=== PATIENT | female | born 1975 | race Caucasian/White ===

== ENCOUNTER 2017-07-25 11:14 | Day surgery (SDC) | payer OTHER ==
[~2017-07-25 11:14] MED LIST: ACETAMINOPHEN 1,000 MG/100 ML BTL IV ONE; CLINDAMYCIN 600MG/50ML PREMIX 600 MG/50 ML BAG IVPB ONE
[2017-07-25] MEDS ORDERED: METOCLOPRAMIDE 10 MG TABLET PO ONE (11:15)
[2017-07-25] MEDS ORDERED: MECLIZINE 25 MG TABLET PO ONE (11:15)
[2017-07-25] MEDS ORDERED: PROPOFOL 10 MG/ML VIAL IV ONE (11:15)
[2017-07-25] MEDS ORDERED: SCOPOLAMINE 1 PATCH TDSY TD ONE (11:15)
[2017-07-25] MEDS ORDERED: KETOROLAC 30 MG/ML VIAL IVP ONE (11:15)
[2017-07-25] MEDS ORDERED: ONDANSETRON HCL IV 4 MG/2 ML VIAL IVP ONE (11:15)
[2017-07-25] MEDS ORDERED: MIDAZOLAM HCL 2MG/2ML VIAL IV ONE (11:15)
[2017-07-25] MEDS ORDERED: FENTANYL PF 100MCG/2ML VIAL IV ONE (11:15)
[2017-07-25] MEDS ORDERED: BUPIVACAINE 0.75% W/EPI MPF 30ML VIAL IVP ONE (11:15)
[2017-07-25] MEDS ORDERED: FAMOTIDINE 20MG TABLET PO ONE (11:15)
[2017-07-25] MEDS ORDERED: DEXAMETHASONE 4 MG/ML 1ML VIAL IVP ONE (11:15)
[2017-07-25] MEDS ORDERED: LIDOCAINE 2% MDV (20MG/ML) 20ML VIAL IV ONE (11:15)
--- NOTE | 2017-07-25 20:53 | Operative Note ---
DATE: 07/25/17 PREOPERATIVE DIAGNOSIS: PAINFUL NEUROMA LEFT THIRD INTERSPACE. POSTOPERATIVE DIAGNOSIS: PAINFUL NEUROMA LEFT THIRD INTERSPACE. PROCEDURE: EXCISION COMMON DIGITAL NERVE LEFT FOOT. STAFF SURGEON: JONO CASPER M.D. ANESTHESIA: GENERAL. PREPARATION: CHLORAPREP. INDIVIDUAL CONSIDERATIONS: NONE. PROCEDURE: The patient was taken to the Operating Room and placed supine on the operating table. She had a successful induction of a general anesthetic. Her left foot was prepped and draped in the usual fashion. The limb was elevated. The tourniquet was inflated to 250 mmHg. The patient had an incision dorsally between the third and fourth metacarpal phalangeal joints. The skin was infiltrated with 0.50% Marcaine with Epinephrine prior. Sharp dissection carried down through the skin and subcutaneous tissue. Care was taken to bring the metatarsals apart retracting on either side bringing the interosseous on either side to the transverse metatarsal fascia. This was carefully opened up and then, once into the perineural fat. I was able to carefully dissect out what appeared to be a common digital nerve proximally. I carried it as far distally as I could. I amputated it proximally as far as I could and then amputated it distally and then removed it for specimen. I did not see the classic Y but clearly I was in the common digital nerve. After irrigation, the tourniquet was let down. There was excellent hemostasis. There was minimal bleeding. The skin was then approximated with interrupted 4-0 nylon in a vertical mattress fashion. A sterile Bulkee compressive dressing was applied. The patient tolerated the procedure well. Needle and sponge counts were correct. Estimated blood loss was minimal and she was taken back to Recovery in good condition. There were no complications. JOB NUMBER: [id number] MTDD
== END 2017-07-25 15:20 | disposition home or self-care (01) ==
LOC: SUR 11:14
PROVIDERS: ATTEND Orthopaedic Surgery
DX: G57.82 Other specified mononeuropathies of left lower limb (principal)
CPT/HCPCS: 28080; 01470; J1885; J2405; J3010; J3490